=== PATIENT | female | born 2000 | race Caucasian/White ===

== ENCOUNTER 2023-09-21 08:39 | Outpatient (REF) | payer OTHER, SELFPAY ==
--- NOTE | ~2023-09-21 | US_ITS ---
EXAMINATION: US PELVIS CLINICAL INFORMATION: Irregular spotting. 22 year old, LMP COMPARISON: None available. TECHNIQUE: Ultrasound of the pelvis is performed using both transabdominal and transvaginal transducers along with Doppler. Transvaginal imaging is performed due to inadequate visualization transabdominally. FINDINGS: Uterus: The uterus is anteverted and measures 8.0 x 4.4 x 5.3 cm. The double wall endometrial thickness is 0.4 mm. The uterus is smooth in contour and has normal myometrial echogenicity. No visible fibroid. Adnexa: Both ovaries are visualized. There is normal color flow to the adnexa. There is no ovarian torsion. There is no pelvic ascites or fluid collection. Right ovary measures 4.2 x 4.7 x 4.. There is 9 cm. Complex intraovarian avascular cyst measures 3.9 x 3.8 x 4.5 cm Left ovary measures 3.2 x 1.4 x 2.3 cm. US/US pelvic and transvaginal IMPRESSION: Complex avascular right intraovarian cyst measures 4.5 cm. Recommend follow-up in 6-12 weeks to assess for resolution.
== END 2023-09-21 08:40 | disposition home or self-care (01) ==
LOC: HO.UMASIMG 08:39
PROVIDERS: Visit Provider Nurse Practitioner Women's Health
DX: N92.6 Irregular menstruation, unspecified (principal)
CPT/HCPCS: 76830; 76856

== ENCOUNTER 2023-11-02 08:06 | Outpatient (REF) | payer OTHER, SELFPAY ==
--- NOTE | ~2023-11-02 | US_ITS ---
EXAMINATION: US PELVIS CLINICAL INFORMATION: Follow up complex right ovarian cyst COMPARISON: Pelvic ultrasound 09/21/2023 TECHNIQUE: Ultrasound of the pelvis is performed using both transabdominal and transvaginal transducers along with Doppler. Transvaginal imaging is performed due to inadequate visualization transabdominally. FINDINGS: Uterus: The uterus is anteverted and measures 7.1 x 4.1 x 4.5 cm in the sagittal, AP and transverse dimensions. The endometrium is normal in thickness measuring 0.8 cm. No focal myometrial lesions. Adnexa: Both ovaries are visualized. There is normal color flow to the adnexa. Right ovary measures 2.8 x 1.6 x 2.3 cm. Left ovary measures 4.2 x 1.6 x 3.8 cm. Previously seen complex right ovarian cyst is no longer visualized. Multiple bilateral ovarian follicles/simple cysts. Small amount of free fluid in the cul-de-sac which is likely physiologic. US/US pelvic and transvaginal IMPRESSION: Previously noted complex right ovarian cyst is no longer visualized.
== END 2023-11-02 08:07 | disposition home or self-care (01) ==
LOC: HO.UMASIMG 08:06
PROVIDERS: Visit Provider Nurse Practitioner Women's Health
DX: N83.291 Other ovarian cyst, right side (principal)
CPT/HCPCS: 76830; 76856